=== PATIENT | female | born 1975 | race Caucasian/White ===

== ENCOUNTER 2018-01-22 14:55 | Observation (INO) | payer BC ==
[~2018-01-22] VITALS: Ht 152.4 cm; Wt 62.6 kg
[2018-01-22] MEDS ORDERED: PROPOFOL IV EMULSION 10 MG/ML 20 ML VIAL ONE (15:08)
[2018-01-22] MEDS ORDERED: ONDANSETRON HCL INJ 2 MG/ML VIAL ONE (15:08)
[2018-01-22] MEDS ORDERED: DEXAMETHASONE SOD PHOS INJ 4 MG/ML VIAL ONE (15:08)
[2018-01-22] MEDS ORDERED: SEVOFLURANE INHAL SOLN 250 ML PEN BTL ONE (15:08)
[2018-01-22] MEDS ORDERED: LIDOCAINE HCL 2% LOCAL INJ 5 ML SDV VIAL INJ ONE (15:08)
[2018-01-22] MEDS ORDERED: MORPHINE SULFATE INJ 4 MG/ML INJ IV STA (16:00)
[2018-01-22] MEDS ORDERED: SODIUM CHLORIDE 0.9% 1000ML 1,000 ML IV STA (16:00)
[2018-01-22] MEDS ORDERED: ONDANSETRON HCL INJ 2 MG/ML VIAL IV STA (16:00)
[2018-01-22 17:28] LABS: BASOPHILS # (AUTO) 0.1 (0.0-0.1); BASOPHILS % 0.5 % (0.0-1.0); EOSINOPHILS # (AUTO) 0.1 (0.0-0.4); EOSINOPHILS % 0.5 % (0.0-6.0); HEMOGLOBIN 11.2 g/dL (12.0-16.0); LYMPHOCYTES # (AUTO) 3.4 (1.0-3.2); LYMPHOCYTES % 35.1 % (18.0-39.1); MEAN CORPUSCULAR HEMOGLOBIN 29.8 pg (28-32); MEAN CORPUSCULAR HGB CONC 32.9 g/dL (31-35); MEAN CORPUSCULAR VOLUME 90.4 fL (81-99); MONOCYTES # (AUTO) 0.5 (0.2-0.8); MONOCYTES % 4.6 % (4.4-11.3); NEUTROPHILS # (AUTO) 5.7 (2.1-6.9); NEUTROPHILS % 59.1 % (38.7-80.0); PLATELET COUNT 260 x10e3/uL (140-360); RED BLOOD COUNT 3.76 x10e6/uL (3.6-5.1); RED CELL DISTRIBUTION WIDTH 12.6 % (11.7-14.4)
[2018-01-22 17:37] LABS: PROTHROMBIN TIME 12.4 seconds (11.9-14.5)
[2018-01-22 17:38] LABS: PARTIAL THROMBOPLASTIN TIME 26.7 seconds (23.8-35.5)
[2018-01-22 17:46] LABS: ALANINE AMINOTRANSFERASE 39 IU/L (0-55); ALBUMIN 3.9 g/dL (3.5-5.0); ALKALINE PHOSPHATASE 35 IU/L (40-150); BLOOD UREA NITROGEN 10 mg/dL (7-26); BUN/CREATININE RATIO 14 (6-25); CALCIUM 9.6 mg/dL (8.4-10.2); CARBON DIOXIDE 22 mmol/L (22-29); CHLORIDE 105 mmol/L (98-107); CREATININE, SERUM 0.71 mg/dL (0.57-1.11); EST GLOMERULAR FILTRATION RATE > 60 ML/MIN (60-); GLUCOSE 92 mg/dL (74-118); SODIUM 139 mmol/L (136-145)
[2018-01-22 17:53] LABS: CLARITY,URINE CLOUDY (CLEAR); COLOR,URINE RED (YELLOW); PREGNANCY TEST, URINE NEGATIVE (NEGATIVE)
[2018-01-22] MEDS ORDERED: MORPHINE SULFATE 2 MG/ML SYR ONE (18:01)
[2018-01-22] MEDS ORDERED: LORAZEPAM INJ 2 MG/ML VIAL IV ONE (18:15)
[2018-01-22 18:32] LABS: NITRITE,URINE POSITIVE (NEGATIVE); PROTEIN,URINE DIPSTICK 3+ (NEGATIVE)
[2018-01-22 18:33] LABS: BILIRUBIN,URINE 1+ (NEGATIVE); KETONES,URINE TRACE (NEGATIVE); URINE UROBILINOGEN 1 mg/dL (0.2 - 1)
[2018-01-22 18:35] LABS: BACTERIA,URINE PRESENT /HPF; RBC,URINE >50 /HPF (0-5)
[2018-01-22 18:37] LABS: WBC,URINE (MAN) 21-50 /HPF (0-5)
[2018-01-22] MEDS: HYDRALAZINE HCL 20 MG/ML VIAL IV PRN (18:50)
[2018-01-22] MEDS ORDERED: HYDRALAZINE HCL 20 MG/ML VIAL ONE (18:57)
[2018-01-22] MEDS: SODIUM CHLORIDE 0.9% 1000ML 1,000 ML IV SCH (20:20)
[2018-01-22 20:35] VITALS: BP 144/80
[2018-01-22 21:34] VITALS: BP 144/80
[2018-01-22] MEDS: ONDANSETRON HCL INJ 2 MG/ML VIAL IV PRN (22:10)
[2018-01-22] MEDS: MORPHINE SULFATE 2 MG/ML SYR IV PRN (22:12)
[2018-01-22 23:48] VITALS: BP 144/80
[2018-01-23] VITALS (7 sets, daily range): BP systolic 116–188; BP diastolic 59–85
[2018-01-23] MEDS: HYDRALAZINE HCL 20 MG/ML VIAL IV PRN ×2 (01:09→18:58)
[2018-01-23] MEDS: SODIUM CHLORIDE 0.9% 1000ML 1,000 ML IV SCH (04:57)
[2018-01-23] MEDS: ONDANSETRON HCL INJ 2 MG/ML VIAL IV PRN (05:46)
[2018-01-23] MEDS: MORPHINE SULFATE 2 MG/ML SYR IV PRN ×2 (06:10→14:39)
[2018-01-23 06:31] LABS: BASOPHILS % 0.4 % (0.0-1.0); EOSINOPHILS % 0.5 % (0.0-6.0); HEMOGLOBIN 9.4 g/dL (12.0-16.0); LYMPHOCYTES % 27.3 % (18.0-39.1); MEAN CORPUSCULAR HEMOGLOBIN 30.1 pg (28-32); MEAN CORPUSCULAR HGB CONC 33.6 g/dL (31-35); MEAN CORPUSCULAR VOLUME 89.7 fL (81-99); MONOCYTES # (AUTO) 0.4 (0.2-0.8); MONOCYTES % 5.2 % (4.4-11.3); NEUTROPHILS # (AUTO) 4.9 (2.1-6.9); NEUTROPHILS % 66.2 % (38.7-80.0); PLATELET COUNT 227 x10e3/uL (140-360); RED BLOOD COUNT 3.12 x10e6/uL (3.6-5.1); RED CELL DISTRIBUTION WIDTH 12.7 % (11.7-14.4)
[2018-01-23] MEDS ORDERED: ACETAMINOPHEN 1000 MG/100 ML IV PRN (08:15)
[2018-01-23] MEDS ORDERED: LACTATED RINGER'S 1,000 ML IV SCH (12:59)
[2018-01-23] MEDS ORDERED: HYDROCODONE/APAP 5MG-325MG TAB PO PRN (13:00)
[2018-01-23] MEDS ORDERED: HYDROCODONE/APAP 10MG-325MG TAB PO PRN (13:00)
[2018-01-23] MEDS ORDERED: IBUPROFEN 600 MG TAB PO PRN (13:15)
[2018-01-23] MEDS ORDERED: METRONIDAZOLE 500MG/NS 100ML 100 ML IV ONE (13:16)
[2018-01-23] MEDS ORDERED: ONDANSETRON HCL INJ 2 MG/ML VIAL ONE (13:57)
[2018-01-23] MEDS ORDERED: FENTANYL CITRATE/PF 100MCG/2 ML INJ ONE ×2 (14:02→19:20)
[2018-01-23 15:09] LABS: HEMATOCRIT 30.7 % (34.2-44.1); HEMOGLOBIN 9.9 g/dL (12.0-16.0)
[2018-01-23] MEDS ORDERED: CLONIDINE HCL 0.1 MG TAB PO PRN (16:45)
--- NOTE | 2018-01-23 17:31 | History and Physical ---
The patient is a 42-year-old female with a past medical history positive for hypertension, who was not taking any blood pressure medication when she came to the hospital. She came with nonstop vaginal bleeding that did not resolve with medical treatment with hormones. The patient underwent a D and C and endometrial ablation by Dr. Yasmeen Murphy, obstetrics technician. The patient's blood pressure is extremely high. We are going to start her on Norvasc 5 mg daily plus clonidine 0.1 q.12 h. as needed and hydralazine IV 25 mg IV q.4 h. as needed. Once the blood pressure is under control, she can go home. She has been discharged by the obstetrics technician already. REVIEW OF SYSTEMS CARDIOVASCULAR: No chest pain or palpitations. RESPIRATORY: No shortness of breath. No cough. GASTROINTESTINAL: No nausea or vomiting. No diarrhea. GENITOURINARY: No frequency. No dysuria. She did have vaginal bleeding, which resolved after the D and C done by the obstetrics technician. ALLERGIES: NOT ALLERGIC TO ANY MEDICATION. PAST MEDICAL HISTORY: She did have a history of hypertension in the past, but she was not taking medication currently. SOCIAL HISTORY: She does not smoke and does not drink. PHYSICAL EXAMINATION HEART: Regular rhythm, normal S1 and S2 sounds. LUNGS: Clear bilaterally. ABDOMEN: Soft. EXTREMITIES: No evidence of cyanosis, edema or trauma. FINAL IMPRESSION 1. Uncontrolled hypertension. 2. Vaginal bleed. 3. Abdominal pain. PLAN OF TREATMENT: As I said, we are going to start her on Norvasc 5 mg daily plus clonidine 0.1 mg twice a day as needed for hypertension and hydralazine 25 mg IV q.4 h. as needed for hypertension. Once the blood pressure is under control, the patient might be able to go home tomorrow. She has been released by the obstetrics technician already. Diet is a low salt diet. Job#: [id number]
--- NOTE | 2018-01-23 17:33 | History and Physical ---
INTERNAL MEDICINE HISTORY AND PHYSICAL ADDENDUM: On the CBC: White blood count 7.35, hemoglobin 9.4, hematocrit 28.0, platelet count 297,000. On the BMP: Sodium 139, potassium 4.0, chloride 105, CO2 22, BUN 10, creatinine 0.71, glucose 92, calcium 9.6. Total bilirubin 0.3, AST 32, ALT 39, alkaline phosphatase 35. Total protein 7.8, albumin 3.9, globulin 3.9. negative. Urine culture was done, also. It has been negative so far. VITAL SIGNS: Blood pressure is 188/85, temperature 97.3, heart rate 75 per minute, respiratory rate 18 per minute, oxygen saturation is normal at 98%. So, we are going to continue the current medication regimen, see how is the blood pressure tomorrow. Once her blood pressure is under control, she might be able to go home. We are going to discontinue the Ringer's lactate. She does not need that amount of fluid anymore. She is on Tylenol 1000 mg IV q.6 h. as needed for pain or fever, clonidine 0.1 mg twice a day p.r.n. for hypertension, hydralazine 10 mg IV q.4 h. as needed for hypertension, Motrin 600 mg 3 times a day as needed for pain, morphine 4 mg IV q.4 h. as needed for severe pain only, [place] 10/325 q.4 h. as needed for moderate pain, and Zofran 4 mg IV q.4 h. as needed. Job#: [id number] EV
--- NOTE | 2018-01-23 17:36 | History and Physical ---
INTERNAL MEDICINE HISTORY AND PHYSICAL ADDENDUM: ANOTHER DIAGNOSIS 1. Acute anemia secondary to vaginal bleeding. 2. Abdominal pain. 3. Uncontrolled hypertension. Job#: [id number] EV
[2018-01-23] MEDS ORDERED: MIDAZOLAM HCL 2 MG/2 ML VIAL ONE (19:20)
[2018-01-24 00:24] VITALS: BP 107/58
[2018-01-24 05:02] VITALS: BP 125/58
[2018-01-24 06:22] LABS: BASOPHILS % 0.2 % (0.0-1.0); HEMATOCRIT 28.9 % (34.2-44.1); HEMOGLOBIN 9.6 g/dL (12.0-16.0); LYMPHOCYTES # (AUTO) 1.8 (1.0-3.2); LYMPHOCYTES % 22.5 % (18.0-39.1); MEAN CORPUSCULAR HGB CONC 33.2 g/dL (31-35); MEAN CORPUSCULAR VOLUME 90.3 fL (81-99); MONOCYTES # (AUTO) 0.5 (0.2-0.8); MONOCYTES % 5.9 % (4.4-11.3); NEUTROPHILS # (AUTO) 5.8 (2.1-6.9); NEUTROPHILS % 71.2 % (38.7-80.0); PLATELET COUNT 261 x10e3/uL (140-360); RED CELL DISTRIBUTION WIDTH 12.8 % (11.7-14.4)
[2018-01-24 08:18] VITALS: BP 141/64
[2018-01-24] MEDS ORDERED: AMLODIPINE BESYLATE 5 MG TAB PO SCH (09:00)
[2018-01-24 10:37] VITALS: BP 141/64
[2018-01-24 12:00] VITALS: BP 138/63
[2018-01-24] MEDS ORDERED: FAMOTIDINE20 MG PO (15:38)
[2018-01-24] MEDS ORDERED: FERRALET 90 DU1 EACH PO (15:39)
[2018-01-24] MEDS ORDERED: NORCO 5-325 TA1 EACH PO (15:40)
[2018-01-24] MEDS ORDERED: IBUPROFEN400 MG PO (15:41)
[2018-01-24] MEDS ORDERED: NORVASC5 MG PO (15:43)
--- NOTE | 2018-01-24 15:57 | Discharge Summary ---
HISTORY OF PRESENT ILLNESS: Patient is a 42-year-old white female. Past medical history is negative for any significant medical condition except for hypertension in the past. Patient was admitted with dysfunctional uterine bleeding. She underwent a __dissection and curettage by Dr. Yasmeen Murphy. Patient's bleeding resolved, but then the blood pressure was extremely high. We start the patient on Norvasc 5 mg daily. Blood pressure is 141/64. She is going home today. She is feeling better. PHYSICAL EXAM: VITAL SIGNS: Blood pressure 141/64, temperature 97.9, heart rate 58 per minute, respiratory rate is 18 per minute, oxygen saturation 98%. HEART: Shows regular rhythm, normal S1 and S2 sounds. LUNGS: Clear bilaterally. ABDOMEN: Soft. EXTREMITIES: Show no evidence of cyanosis, edema or trauma. On the BMP: Sodium 139, potassium 4.0, chloride 105, CO2 22, BUN 10, creatinine 0.71, glucose 92. On the CBC: White blood count 8.15, hemoglobin 9.6, hematocrit 28.9, platelet count 261,000. PT 12.4, PTT 26.7, INR 1.00. AST 32, ALT 39, total bilirubin 0.3, alkaline phosphatase 35. FINAL IMPRESSIONS: 1. Uncontrolled hypertension, which is better now. 2. An episode of uterine bleeding, which is resolved after __dissection and curettage done by Dr. Murphy, gut carrier. Patient is going home today. She is going to continue Norvasc 5 mg daily, and then she will continue the rest of the medication prescribed by Dr. Murphy, OB-PLANTING MATERIAL CARRIER, which includes [place] 5/325 one or two tablets every 4 to 6 hours as needed for severe pain, Pepcid 20 mg twice a day for 2 days, ibuprofen 800 mg q.8 hours times 7 days, and ferrous sulfate 90 mg tablet one tablet daily, 30 tablets to refill. Follow up with me in a week or 2 weeks and follow up with Dr. Murphy, gut carrier, also in a week. MEAGAN CALZADA MD Job#: [id number] EV
--- NOTE | 2018-01-27 09:34 | Operative Report ---
DATE OF PROCEDURE: January 23, 2018 MULT AU MATIC OPERATOR: None PREOPERATIVE DIAGNOSES 1. Abnormal uterine bleeding. 2. Anemia. POSTOPERATIVE DIAGNOSES 1. Abnormal uterine bleeding. 2. Anemia. PROCEDURES PERFORMED 1. Hysteroscopy. 2. Dilatation and curettage. 3. Endometrial ablation. ANESTHESIA: General. ESTIMATED BLOOD LOSS: Minimal. COMPLICATIONS: None. FINDINGS: Approximately 6-week size uterus noted on bimanual exam, anteverted. No adnexal masses palpable. Hysteroscopic findings included a normal uterine cavity with a small endometrial polyp. Normal tubal ostia were noted bilaterally. The uterus was sounded to 9 cm and the cervix to 3 cm, revealing a 6-cm cavity length. SPECIMENS: Endometrial curettings. INDICATIONS: The patient is a 42-year-old female with a history of menorrhagia and anemia, who had been scheduled for endometrial ablation with Dr. Agee when she was admitted through the emergency room for uncontrolled abnormal uterine bleeding as well as anemia and uncontrolled hypertension. After undergoing stabilization of her hypertension, it was deemed necessary to proceed with her procedure sooner than originally planned. PROCEDURE NOTE: The patient was taken to the operating room where she underwent general anesthesia. She was properly prepped and draped in the typical sterile fashion in the dorsal lithotomy position with candy cane stirrups. After bimanual examination, the cervix was exposed with a weighted vaginal speculum, and the anterior lip of the cervix was grasped with a single-toothed tenaculum. The cervix and uterus were sounded with the findings noted above. The endocervical canal was then progressively dilated with Larisa dilators to a #18 Larisa. The hysteroscope was then introduced into the uterine cavity using sterile saline solution as a distending medium. The endometrial cavity was distended with fluids, and the cavity was visualized with the findings noted above. Several pictures were taken of the endometrial cavity. Then a sharp curettage was performed until a gritty texture was noted. The Angela device was then opened. The instrument was set to the correct cavity length and introduced into the uterine cavity. The same was slowly deployed with gentle movements to ensure snug fit within the cavity. The cervical balloon was inflated. A cavity integrity check was done and was normal. The device was activated and performed the full 120-second ablation cycle. The device was retracted and removed. The tenaculum was removed and the cervix examined for hemostasis, which was then achieved. Finally, the weighted speculum was removed. The patient tolerated the procedure well, and was brought to the recovery room in stable condition. At the end of the procedure, all sponges and instruments were counted and correct. Blood loss was minimal. There were no complications. Job#: [id number]
== END 2018-01-24 16:28 | disposition home or self-care (01) ==
LOC: ER 14:55 → ERHOLD 20:05 → MED/SURG 20:09
PROVIDERS: ADMIT Internal Medicine; ATTEND Internal Medicine
DX: N93.8 Other specified abnormal uterine and vaginal bleeding (principal); D62 Acute posthemorrhagic anemia; N87.9 Dysplasia of cervix uteri, unspecified; I10 Essential (primary) hypertension; N84.0 Polyp of corpus uteri
CPT/HCPCS: 36415 ×3; 58563; 80053; 81001; 81025; 84702; 85014; 85018; 85025 ×3; 85610; 85730; 86850; 86900; 87086; 88305; 99284; G0378 ×3; J0360 ×2; J1100; J2001; J2060; J2250; J2270 ×2; J2405 ×2; J7030 ×2